=== PATIENT | male | born 1990 | race Caucasian/White ===

== ENCOUNTER 2017-03-17 04:25 | Emergency (ER) | payer BC ==
[2017-03-17 04:52] LABS: Eosinophils 1 % (0-10); Hemoglobin 15.6 g/dL (14.0-18.0); Lymphocytes 30 % (21-51); MDiff Complete? YES; Mean Corpuscular HGB CONC 32.6 g/dL (32.0-36.0); Mean Corpuscular Hemoglobin 31.1 pg (27.0-31.0); Mean Corpuscular Volume 95.5 fl (80.0-94.0); Mean Platelet Volume 6.6 fL (7.4-10.4); Monocytes 4 % (0-10); Neutrophil 45 % (42-75); PLT Morphology Comment Appears Increased; Platelet Count 442 thou/uL (130-400); RBC Distribution Width 11.6 % (11.5-14.5); RBC Morphology Normal; Reactive Lymphocytes 20 % (0-10); White Blood Cell (WBC) Count 16.4 thou/uL (4.8-10.8)
[2017-03-17 04:56] LABS: BUN (Urea Nitrogen) 9 mg/dL (8.9-20.6); Calc. Creatinine Clearance 0 mL/min (70-130); Calcium 9.6 mg/dL (7.8-10.44); Chloride 104 mmol/L (98-107); Estimated GFR-MDRD 66; Glucose 125 mg/dL (70-105); Potassium 3.9 mmol/L (3.5-5.1); Sodium 142 mmol/L (136-145)
[2017-03-17 04:58] LABS: Carbon Dioxide Less than 10 mmol/L (22-29)
[2017-03-17] MEDS ORDERED: Sodium Chloride 0.9% 1,000 ML BAG ONE (06:45)
--- NOTE | 2017-03-17 09:22 | RAD ---
PORTABLE CHEST HISTORY: Nausea and vomiting. FINDINGS: Heart size and mediastinum are within normal limits. Lungs are clear of infiltrates. No significan t bony findings. IMPRESSION: No active intrathoracic disease. POS: [facility]
== END 2017-03-17 05:30 | disposition home or self-care (01) ==
LOC: MADERS 04:25
DX: G40.909 Epilepsy, unspecified, not intractable, without status epilepticus (principal); E11.9 Type 2 diabetes mellitus without complications
CPT/HCPCS: 71010; 80048; 85025; 96360; J7050

== ENCOUNTER 2018-03-18 08:39 | Emergency (ER) | payer BC, OTHER ==
[2018-03-18] MEDS ORDERED: Lorazepam 2 MG/ML VIAL ONE ×2 (09:14→09:31)
[2018-03-18] MEDS ORDERED: Ondansetron HCl/PF 4 MG/2 ML Vial ONE (09:31)
[2018-03-18 10:19] LABS: #Basophils 0.1 thou/uL (0.0-0.2); #Eosinphils 0.3 thou/uL (0.0-0.7); #Lymphocytes 2.2 thou/uL (1.20-3.40); #Monocytes 0.7 thou/uL (0.11-0.59); %Eosinophils 2.2 % (0.0-10.0); %Lymphocytes 15.4 % (21.0-51.0); %Monocytes 4.6 % (0.0-10.0); %Neutrophils 76.8 % (42.0-75.0); Hemoglobin 13.9 g/dL (14.0-18.0); Mean Corpuscular HGB CONC 32.6 g/dL (32.0-36.0); Mean Corpuscular Hemoglobin 29.3 pg (27.0-31.0); Mean Corpuscular Volume 89.8 fL (78.0-98.0); Mean Platelet Volume 5.4 fL (7.4-10.4); Platelet Count 376 thou/uL (130-400); RBC Distribution Width 11.1 % (11.5-14.5); Red Blood Cell (RBC) Count 4.75 mill/uL (4.70-6.10); White Blood Cell (WBC) Count 14.3 thou/uL (4.8-10.8)
[2018-03-18 10:30] LABS: ALT (SGPT) 31 U/L (8-55); AST (SGOT) 17 U/L (5-34); Acetaminophen Less than 6.0 mcg/mL (10.0-30.0); Albumin 4.5 g/dL (3.5-5.0); Alcohol Less than 10 mg/dL (Less than 10); Alkaline Phosphatase 115 U/L (40-150); Anion Gap 24 mmol/L (10-20); BUN (Urea Nitrogen) 13 mg/dL (8.9-20.6); Bilirubin, Total 0.2 mg/dL (0.2-1.2); Calc. Creatinine Clearance 0 mL/min (70-130); Calcium 9.1 mg/dL (7.8-10.44); Carbon Dioxide 13 mmol/L (22-29); Chloride 107 mmol/L (98-107); Estimated GFR-MDRD 68; Globulin 2.9 g/dL (2.4-3.5); Glucose 101 mg/dL (70-105); Protein, Total 7.4 g/dL (6.0-8.3); Salicylate Less than 8.0 mg/dL (15.0-30.0); Sodium 140 mmol/L (136-145)
== END 2018-03-18 11:25 | disposition short-term general hospital (02) ==
LOC: MADERS 08:39
DX: G40.909 Epilepsy, unspecified, not intractable, without status epilepticus (principal); E11.9 Type 2 diabetes mellitus without complications; Z79.899 Other long term (current) drug therapy
CPT/HCPCS: 36415; 80053; 80307; 85025; 96374; 96375; J2060; J2405

== ENCOUNTER 2018-09-29 20:19 | Emergency (ER) | payer OTHER, SELFPAY ==
[2018-09-29] MEDS ORDERED: HYDROmorphone 0.5 MG/0.5 ML SYRINGE ONE (20:48)
[2018-09-29 20:53] LABS: #Basophils 0.1 thou/uL (0.0-0.2); #Eosinphils 0.2 thou/uL (0.0-0.7); #Lymphocytes 2.4 thou/uL (1.20-3.40); #Monocytes 0.4 thou/uL (0.11-0.59); #Neutrophils 6.9 thou/uL (1.40-6.50); %Basophils 1.2 % (0.0-1.0); %Eosinophils 2.4 % (0.0-10.0); %Lymphocytes 23.8 % (21.0-51.0); %Monocytes 3.8 % (0.0-10.0); %Neutrophils 68.8 % (42.0-75.0); Mean Corpuscular HGB CONC 33.4 g/dL (32.0-36.0); Mean Corpuscular Hemoglobin 30.7 pg (27.0-31.0); Mean Corpuscular Volume 91.9 fL (78.0-98.0); Mean Platelet Volume 6.3 fL (7.4-10.4); Platelet Count 378 thou/uL (130-400); RBC Distribution Width 11.4 % (11.5-14.5); Red Blood Cell (RBC) Count 5.22 mill/uL (4.70-6.10); White Blood Cell (WBC) Count 10.1 thou/uL (4.8-10.8)
[2018-09-29] MEDS ORDERED: Sodium Chloride 0.9% 1,000 ML ONE (21:02)
[2018-09-29 21:14] LABS: ALT (SGPT) 19 U/L (8-55); AST (SGOT) 14 U/L (5-34); Albumin 4.7 g/dL (3.5-5.0); Alkaline Phosphatase 113 U/L (40-150); Anion Gap 13 mmol/L (10-20); BUN (Urea Nitrogen) 11 mg/dL (8.9-20.6); Bilirubin, Total 0.3 mg/dL (0.2-1.2); Calc. Creatinine Clearance 0 mL/min (70-130); Calcium 9.9 mg/dL (7.8-10.44); Carbon Dioxide 24 mmol/L (22-29); Chloride 108 mmol/L (98-107); Estimated GFR-MDRD Greater than 90; Globulin 2.9 g/dL (2.4-3.5); Glucose 90 mg/dL (70-105); Lipase 5 U/L (8-78); Protein, Total 7.6 g/dL (6.0-8.3)
[2018-09-29 21:17] LABS: Sodium 141 mmol/L (136-145)
[2018-09-29] MEDS ORDERED: predniSONE 20 MG TAB ONE (21:42)
--- NOTE | 2018-09-29 21:46 | CT ---
CT ABDOMEN NONCONTRAST CT PELVIS NONCONTRAST: (urolithiasis protocol) 09/29/18 HISTORY: 28-year-old male with right flank pain. TECHNIQUE: IV injection of iodinated contrast media: none Oral contrast media: none FINDINGS: Other than for urolithiasis, the lack of IV and oral contrast limits the evaluation. Liver: No contour abnormalities. Spleen: No splenomegaly. Pancreas: No contour abnormalities. Adrenals: No mass. Kidneys: No nephrolithiasis or overt hydronephrosis. Ureters: No calculi. Bladder: No calculi. Abdominal aorta: No aneurysm. Small bowel: No dilation. Colon: No adjacent fat stranding. Appendix: No dilation or adjacent fat stranding. Free air: None. Free fluid: None. IMPRESSION: No acute findings. zahra [] POS: [facility]
== END 2018-09-29 22:51 | disposition home or self-care (01) ==
LOC: MADERS 20:19
DX: S39.012A Strain of muscle, fascia and tendon of lower back, initial encounter (principal); G40.909 Epilepsy, unspecified, not intractable, without status epilepticus; F17.210 Nicotine dependence, cigarettes, uncomplicated; Z79.899 Other long term (current) drug therapy; X58.XXXA Exposure to other specified factors, initial encounter
CPT/HCPCS: 74176; 80053; 83690; 85025; 96374; J1170; J7050; J7506

== ENCOUNTER 2018-12-09 06:13 | Emergency (ER) | payer BC, SELFPAY ==
[2018-12-09] MEDS ORDERED: Ondansetron PF 4 MG/2 ML Vial ONE (06:25)
[2018-12-09] MEDS ORDERED: Sodium Chloride 0.9% 1,000 ML ONE (06:25)
[2018-12-09 06:53] LABS: %Eosinophils 4.2 % (0.0-10.0); %Lymphocytes 27.8 % (21.0-51.0); %Monocytes 5.3 % (0.0-10.0); %Neutrophils 61.5 % (42.0-75.0); Hemoglobin 15.4 g/dL (14.0-18.0); Mean Corpuscular HGB CONC 31.5 g/dL (32.0-36.0); Mean Corpuscular Hemoglobin 29.2 pg (27.0-31.0); Mean Corpuscular Volume 92.9 fL (78.0-98.0); Platelet Count 416 thou/uL (130-400); RBC Distribution Width 11.5 % (11.5-14.5); Red Blood Cell (RBC) Count 5.26 mill/uL (4.70-6.10); White Blood Cell (WBC) Count 11.2 thou/uL (4.8-10.8)
[2018-12-09 06:54] LABS: #Basophils 0.1 thou/uL (0.0-0.2); #Eosinphils 0.5 thou/uL (0.0-0.7); #Lymphocytes 3.1 thou/uL (1.20-3.40); #Monocytes 0.6 thou/uL (0.11-0.59); #Neutrophils 6.9 thou/uL (1.40-6.50); %Basophils 1.2 % (0.0-1.0)
[2018-12-09 07:00] LABS: ALT (SGPT) 23 U/L (8-55); AST (SGOT) 16 U/L (5-34); Alkaline Phosphatase 127 U/L (40-150); Anion Gap 27 mmol/L (10-20); BUN (Urea Nitrogen) 14 mg/dL (8.9-20.6); Bilirubin, Total 0.2 mg/dL (0.2-1.2); Calc. Creatinine Clearance 0 mL/min (70-130); Carbon Dioxide 15 mmol/L (22-29); Chloride 104 mmol/L (98-107); Estimated GFR-MDRD 60; Globulin 3.1 g/dL (2.4-3.5); Glucose 133 mg/dL (70-105); Potassium 4.5 mmol/L (3.5-5.1); Protein, Total 8.1 g/dL (6.0-8.3); Sodium 141 mmol/L (136-145)
--- NOTE | 2018-12-09 07:36 | RAD ---
RIGHT ELBOW 4 VIEWS: Date: 12/09/18 HISTORY: Injury secondary to trauma during a seizure. FINDINGS/IMPRESSION: No fracture, dislocation, or other acute process. POS: [facility]
== END 2018-12-09 07:26 | disposition home or self-care (01) ==
LOC: MADERS 06:13
DX: G40.909 Epilepsy, unspecified, not intractable, without status epilepticus (principal); S50.01XA Contusion of right elbow, initial encounter; E86.0 Dehydration; F17.210 Nicotine dependence, cigarettes, uncomplicated; Z79.899 Other long term (current) drug therapy; W19.XXXA Unspecified fall, initial encounter
CPT/HCPCS: 80053; 85025; 96361; 96374; J2405; J7050

== ENCOUNTER 2020-10-24 17:00 | Emergency (ER) | payer BC, OTHER ==
[2020-10-24] MEDS ORDERED: Boostrix 0.5 ML (Tdap) VIAL ONE (17:37)
[2020-10-24] MEDS ORDERED: Sodium Chloride 0.9% 1,000 ML ONE (17:37)
--- NOTE | 2020-10-24 18:10 | CT ---
Head CT without contrast: 10/24/2020 HISTORY: Seizure, head trauma TECHNIQUE: Axial CT imaging at 5 mm intervals from vertex through skull base without contrast. Alejo l and sagittal reformatted imaging obtained. FINDINGS: The imaged paranasal sinuses and mastoid air cells are grossly unremarkable. There is no di splaced calvarial fracture. No intracranial hemorrhage, midline shift, or mass effect. If there is clinical concern for an underlying seizure focus, follow-up brain MRI suggested. IMPRESSION: No intracranial hemorrhage.
--- NOTE | 2020-10-24 18:12 | CT ---
Cervical spine CT without contrast: 10/24/2020 COMPARISON: None HISTORY: Fall, seizure, pain TECHNIQUE: Axial CT imaging at 2.5 mm intervals from skull base through lung apices without contrast. Coronal and sagittal reformatted imaging obtained. FINDINGS: Linear metallic density at the base of the neck on the left suggests a vagal nerve stimulat or. No cervical spine anterolisthesis or retrolisthesis. The imaged lung apices appear unremarkable. The craniocervical junction, atlantoaxial interspace, and cervicothoracic junction appear unremarkabl e. Cervical vertebral body height and alignment appears normal. No acute fracture or dislocation is seen within the cervical spine. IMPRESSION: No acute osseous abnormality.
--- NOTE | 2020-10-24 18:16 | CT ---
CT of the facial bones: 10/24/2020 COMPARISON: None HISTORY: Fall, trauma, pain, seizure TECHNIQUE: Axial CT imaging at 2.5 mm intervals through the facial bones without contrast. Coronal an d sagittal reformatted imaging obtained. FINDINGS: A small metallic foreign body is noted just anterior to the midline mandible in the region of the base of the lower lip which measures 4 mm, best seen on axial image 22. There is a comminuted fracture of the bilateral nasal bones with deviation/angulation to the left. The frontal sinuses, maxillary sinuses, sphenoid sinuses, and ethmoid air cells are well-aerated. The temporomandibular joints and the mandible demonstrate no acute findings. The orbital floor and th e medial orbital wall appears intact bilaterally. Zygomatic arches and pterygoid plates appear intact. IMPRESSION: Bilateral nasal bone fractures. Subcentimeter metallic foreign body within the posterior midline aspect of the lower lip.
[2020-10-24] MEDS ORDERED: Ketorolac Tromethamine 30 MG/ML VIAL ONE (18:44)
== END 2020-10-24 18:58 | disposition home or self-care (01) ==
LOC: MADERS 17:00
DX: S02.2XXA Fracture of nasal bones, initial encounter for closed fracture (principal); G40.909 Epilepsy, unspecified, not intractable, without status epilepticus; F17.210 Nicotine dependence, cigarettes, uncomplicated; Z79.899 Other long term (current) drug therapy
CPT/HCPCS: 70450; 70486; 72125; 90471; 90715; 96374; J1885; J7050